=== PATIENT | female | born 2000 | race Caucasian/White ===

== ENCOUNTER → 2022-09-26 | Outpatient (CLI) | payer OTHER | LOC: M WHC 10:14 | PROVIDERS: ATTEND Specialist | DX: Z34.82 Encounter for supervision of other normal pregnancy, second trimester (principal) ==

== ENCOUNTER 2022-12-17 08:19 | Outpatient (CLI) | payer OTHER ==
[~2022-12-17] VITALS: Ht 162.6 cm; Wt 62.1 kg
[2022-12-17] MEDS ORDERED: ONDANSETRON 4MG 2ML VIAL IV ONE (09:10)
[2022-12-17] MEDS ORDERED: LACTATED RINGER'S 1000 ML IV ONE (09:10)
[2022-12-17 10:01] LABS: HEMATOCRIT 34.6 % (36.0-47.0); HEMOGLOBIN 11.4 g/dl (12.0-15.5); MEAN CORPUSCULAR HEMOGLOBIN 29.2 pg (27.0-33.0); MEAN CORPUSCULAR HGB CONC 32.9 g/dl (32.0-36.5); MEAN CORPUSCULAR VOLUME 88.7 fl (80.0-96.0); PLATELET COUNT, AUTOMATED 222 10^3/uL (150-450); WHITE BLOOD COUNT 13.9 10^3/uL (4.0-10.0)
[2022-12-17 10:19] LABS: LIPASE 45 U/L (12-53)
[2022-12-17 10:21] LABS: ALBUMIN 3.1 G/DL (3.2-5.2); ALKALINE PHOSPHATASE 135 U/L (46-116); ALT/SGPT 13 U/L (7.0-40); AMYLASE 100 U/L (30-118); AST/SGOT 37 U/L (<34); BILIRUBIN,TOTAL 0.5 MG/DL (0.3-1.2); BLOOD UREA NITROGEN 8 MG/DL (9-23); CALCIUM LEVEL 8.9 MG/DL (8.5-10.1); CARBON DIOXIDE LEVEL 24 MMOL/L (20-31); CHLORIDE LEVEL 102 MMOL/L (98-107); CREATININE FOR GFR 0.45 MG/DL (0.55-1.30); GLOMERULAR FILTRATION RATE > 60.0 (>60); GLUCOSE, FASTING 72 MG/DL (60-100); POTASSIUM SERUM 4.7 MMOL/L (3.5-5.1); SODIUM LEVEL 136 MMOL/L (136-145); TOTAL PROTEIN 6.1 G/DL (5.7-8.2)
[2022-12-17] MEDS: LR 1,000 ML IV SCH ×2 (12:02→20:33)
[2022-12-17] MEDS ORDERED: TUMS500C PO (12:38)
[2022-12-17] MEDS ORDERED: PRENTAB45 PO (12:38)
[2022-12-17] MEDS ORDERED: ACET500P3 PO (12:38)
[2022-12-17] MEDS ORDERED: HOME MED LIST COMPLETE! XX SCH (12:40)
[2022-12-17 12:54] LABS: APPEARANCE, URINE HAZY (CLEAR); BACTERIA, URINE AUTO NEGATIVE (NEGATIVE); BILIRUBIN, URINE AUTO NEGATIVE (NEGATIVE); BLOOD, URINE BLOOD NEGATIVE (NEGATIVE); COLOR, URINE YELLOW (YELLOW); GLUCOSE, URINE (UA) AUTO NEGATIVE (NEGATIVE); KETONE, URINE AUTO 2+ mg/dL (NEGATIVE); LEUKOCYTE ESTERASE, URINE AUTO NEGATIVE (NEGATIVE); MUCUS, URINE SMALL (NEGATIVE); NITRITE, URINE AUTO NEGATIVE (NEGATIVE); PROTEIN, URINE AUTO 1+ mg/dL (NEGATIVE); RBC, URINE AUTO 0 /HPF (0-3); SPECIFIC GRAVITY URINE AUTO 1.023 (1.002-1.035); SQUAMOUS EPITHELIAL CELL UR AU 6 /HPF (0-6); WBC, URINE AUTO 1 /HPF (0-3)
[2022-12-17] MEDS ORDERED: CYCLOBENZAPRINE 10MG TABLET PO ONE (16:30)
[2022-12-17] MEDS ORDERED: MORPHINE 10 MG/ML 1ML VIAL IM ONE (18:15)
[2022-12-17] MEDS ORDERED: PROMETHAZINE 25MG/ML 1ML VIAL IV ONE (18:15)
[2022-12-17] MEDS ORDERED: MORPHINE 10 MG/ML 1ML VIAL SC ONE (18:15)
== END 2022-12-18 07:15 | disposition home or self-care (01) ==
LOC: M LDO 08:19
PROVIDERS: ATTEND Advanced Practice Midwife
DX: O26.893 Other specified pregnancy related conditions, third trimester (principal); R10.11 Right upper quadrant pain; O99.013 Anemia complicating pregnancy, third trimester; D50.9 Iron deficiency anemia, unspecified; O99.333 Smoking (tobacco) complicating pregnancy, third trimester; F17.200 Nicotine dependence, unspecified, uncomplicated; Z3A.34 34 weeks gestation of pregnancy
CPT/HCPCS: 59025; 74181; 76705; 80053; 81001; 82150; 83690; 85027; 96372; 96374; G0463; J2550

== ENCOUNTER → 2023-08-04 | Outpatient (CLI) | payer OTHER ==
[~2023-08-04] MED LIST: ACET-683 PO; ACET500P3 PO; CEPH500C PO; IBUP80TA PO; PRENTAB45 PO; TUMS500C PO
== END ==
LOC: M WHC 12:58
PROVIDERS: ATTEND Obstetrics & Gynecology
DX: O28.3 Abnormal ultrasonic finding on antenatal screening of mother (principal); Z3A.22 22 weeks gestation of pregnancy

== ENCOUNTER → 2023-09-11 | Outpatient (CLI) | payer OTHER | LOC: M RAD 06:49 | PROVIDERS: ATTEND Advanced Practice Midwife | DX: Z34.82 Encounter for supervision of other normal pregnancy, second trimester (principal); Z3A.27 27 weeks gestation of pregnancy ==

== ENCOUNTER → 2023-09-28 | Outpatient (CLI) | payer OTHER | LOC: M WHC 09:40 | PROVIDERS: ATTEND Advanced Practice Midwife | DX: O36.5930 Maternal care for other known or suspected poor fetal growth, third trimester, not applicable or unspecified (principal); Z3A.30 30 weeks gestation of pregnancy ==

== ENCOUNTER → 2023-10-07 | Outpatient (CLI) | payer OTHER ==
[2023-10-07 12:59] LABS: HEMATOCRIT 34.1 % (36.0-47.0); HEMOGLOBIN 10.9 g/dl (12.0-15.5); MEAN CORPUSCULAR HEMOGLOBIN 29.2 pg (27.0-33.0); MEAN CORPUSCULAR VOLUME 91.4 fl (80.0-96.0); PLATELET COUNT, AUTOMATED 264 10^3/uL (150-450); RED BLOOD COUNT 3.73 10^6/uL (4.00-5.40); WHITE BLOOD COUNT 11.5 10^3/uL (4.0-10.0)
[2023-10-07 13:25] LABS: GLUCOSE CHALLENGE TEST 1 HOUR 95 MG/DL (LESS THAN 140)
[2023-10-07 13:58] LABS: GC DNA AMPLIFICATION NEGATIVE (NEGATIVE)
[2023-10-07 14:00] LABS: HIV 1&2 SCREEN NEGATIVE (NEGATIVE)
[2023-10-07 14:08] LABS: HEPATITIS C VIRUS ABY INDEX < 0.02 INDEX (<0.8)
== END ==
LOC: M PLALAB 09:04
PROVIDERS: ATTEND Advanced Practice Midwife
DX: Z34.82 Encounter for supervision of other normal pregnancy, second trimester (principal)

== ENCOUNTER → 2023-11-10 | Outpatient (REF) | payer OTHER | LOC: M SFHCWAGY 12:57 | PROVIDERS: ATTEND Obstetrics & Gynecology | DX: Z36.89 Encounter for other specified antenatal screening (principal); Z3A.36 36 weeks gestation of pregnancy ==

== ENCOUNTER → 2023-11-10 | Outpatient (CLI) | payer OTHER | LOC: M WHC 15:07 | PROVIDERS: ATTEND Obstetrics & Gynecology | DX: O36.5990 Maternal care for other known or suspected poor fetal growth, unspecified trimester, not applicable or unspecified (principal) ==

== ENCOUNTER 2023-11-30 08:54 | Inpatient (IN) | payer OTHER ==
[2023-11-30] VITALS (28 sets, daily range): BP systolic 98–158; BP diastolic 56–87; O2SAT 97–99
[~2023-11-30] VITALS: Ht 162.6 cm; Wt 72.0 kg
[2023-11-30] MEDS ORDERED: LIDOCAINE 1% MDV 20ML VIAL INFIL PRN (09:45)
[2023-11-30] MEDS ORDERED: CARBOPROST TROMETHAMINE 250 MCG/ML AMP IM PRN (09:45)
[2023-11-30] MEDS ORDERED: TRANEXAMIC ACID INJection 1,000 MG in NS 100 ML IV PRN (09:45)
[2023-11-30] MEDS ORDERED: OXYTOCIN INJ 10UNITS/ML 1ML VIAL IM PRN (09:45)
[2023-11-30] MEDS ORDERED: METHYLERGONOVINE MALEATE 0.2MG/ML 1ML VIAL IM PRN (09:45)
[2023-11-30] MEDS: LACTATED RINGER'S 1000 ML IV STA (09:49)
[2023-11-30 10:04] LABS: HEMATOCRIT 35.8 % (36.0-47.0); HEMOGLOBIN 11.8 g/dl (12.0-15.5); MEAN CORPUSCULAR HEMOGLOBIN 28.2 pg (27.0-33.0); MEAN CORPUSCULAR VOLUME 85.4 fl (80.0-96.0); PLATELET COUNT, AUTOMATED 290 10^3/uL (150-450); RED BLOOD COUNT 4.19 10^6/uL (4.00-5.40); WHITE BLOOD COUNT 17.1 10^3/uL (4.0-10.0)
[2023-11-30] MEDS ORDERED: EPIDURAL/PCA KEYS XX PRN (10:20)
[2023-11-30] MEDS ORDERED: ePHEDrine SULFATE 25 MG/5 ML(5MG/ML) SYRINGE IVP PRN (10:20)
[2023-11-30] MEDS ORDERED: ONDANSETRON 4MG 2ML VIAL IV PRN (10:20)
[2023-11-30] MEDS ORDERED: NALOXONE INJ 0.4MG/1ML VIAL IV PRN (10:20)
[2023-11-30] MEDS ORDERED: LR 500 ML IV PRN (10:20)
[2023-11-30] MEDS ORDERED: diphenhydrAMINE 50MG/ML VIAL IV PRN (10:20)
[2023-11-30] MEDS: LR 1,000 ML IV SCH (10:42)
[2023-11-30] MEDS: FENTANYL/ROPIVACAINE/NACL BAG 100 ML EPIDURAL SCH (10:43)
[2023-11-30 11:09] LABS: HEPATITIS C VIRUS ABY INDEX 0.02 INDEX (<0.8)
[2023-11-30] MEDS ORDERED: HOME MED LIST COMPLETE! XX SCH (13:20)
[2023-11-30] MEDS ORDERED: MORPHINE 10 MG/ML 1ML VIAL IV ONE (16:05)
[2023-11-30] MEDS: OXYTOCIN DRIP 30 UNITS in IV 1 EA IV PRN (16:06)
[2023-11-30] MEDS: MORPHINE 10 MG/ML 1ML VIAL IV ONE (16:13)
[2023-11-30] MEDS ORDERED: ACETAMINOPHEN 500 MG TAB PO PRN (17:25)
[2023-11-30] MEDS ORDERED: DIBUCAINE 1% OINTMENT 30GM TOP PRN (17:25)
[2023-11-30] MEDS ORDERED: RHOGAM 300MCG (1500IU) INJ IM SCH (17:25)
[2023-11-30] MEDS ORDERED: DOCUSATE SODIUM 100MG CAPSULE PO PRN (17:25)
[2023-11-30] MEDS ORDERED: ANUSOL HC CREAM 30GM TOP PRN (17:25)
[2023-11-30] MEDS ORDERED: MOM 30ML SUSPENSION UDC PO PRN (17:25)
[2023-11-30] MEDS: ceFAZolin SOD 2 GM in IV 1 EA IV ONE (18:15)
[2023-11-30] MEDS: IBUPROFEN 600MG TAB PO PRN (21:04)
[2023-12-01 01:59] VITALS: BP 105/54; O2SAT 98
[2023-12-01] MEDS: IBUPROFEN 800 MG TAB PO PRN (03:34)
[2023-12-01 06:19] VITALS: BP 102/59; O2SAT 98
[2023-12-01] MEDS: PRENATAL VITAMINS CHEWABLE TABLET PO SCH (08:29)
[2023-12-01] MEDS: ACETAMINOPHEN 325 MG TAB PO PRN (08:30)
[2023-12-02] MEDS ORDERED: MEASLES,MUMPS,RUBELLA VACCINE INJ (MMR-II) SC.IMMUN ONE (09:00)
== END 2023-12-01 17:20 | disposition home or self-care (01) | DRG 541 ==
LOC: M LDO 08:54 → M LDI 09:20 → M OBS 18:34
PROVIDERS: ADMIT Advanced Practice Midwife; ATTEND Advanced Practice Midwife
PROC: 10E0XZZ Delivery of Products of Conception, External Approach (ICD-10-PCS; principal; 2023-11-30)
PROC: 10D17Z9 Manual Extraction of Products of Conception, Retained, Via Natural or Artificial Opening (ICD-10-PCS; 2023-11-30)
PROC: 10907ZC Drainage of Amniotic Fluid, Therapeutic from Products of Conception, Via Natural or Artificial Opening (ICD-10-PCS; 2023-11-30)
DX: O73.0 Retained placenta without hemorrhage (principal); Z37.0 Single live birth; Z3A.39 39 weeks gestation of pregnancy